=== PATIENT | male | born 1970 | race Caucasian/White ===

== ENCOUNTER → 2021-05-25 | Day surgery (SDC) | payer OTHER ==
[~2021-05-25] VITALS: Ht 175.3 cm; Wt 83.9 kg
[~2021-05-25] MED LIST: ASPIRIN EC81 MG PO; ATORVASTATIN CA20 MG PO; BUSPIRONE HCL15 M1 PO; ESCITALOPRAM OX20 MG PO; MELOXICAM15 MG PO; OMEPRAZOLE40 MG PO
== END | disposition home or self-care (01) ==
LOC: FAS 07:53
DX: Z12.11 Encounter for screening for malignant neoplasm of colon (principal); D12.3 Benign neoplasm of transverse colon; K21.9 Gastro-esophageal reflux disease without esophagitis; E78.00 Pure hypercholesterolemia, unspecified; F41.9 Anxiety disorder, unspecified; F32.A Depression, unspecified; Z79.82 Long term (current) use of aspirin; Z79.899 Other long term (current) drug therapy; Z90.49 Acquired absence of other specified parts of digestive tract; Z80.3 Family history of malignant neoplasm of breast; Z72.89 Other problems related to lifestyle
CPT/HCPCS: J2250; J2704; J7120